=== PATIENT | female | born 1985 | race Caucasian/White ===

== ENCOUNTER 2016-05-26 15:15 | Emergency (ER) | payer OTHER ==
[~2016-05-26] VITALS: Ht 172.7 cm; Wt 59.0 kg
[2016-05-26 15:39] VITALS: BP 130/80
--- NOTE | 2016-05-26 17:36 | ED HEAD/FACIAL INJ COMPLAINT ---
History of Present Illness General Chief Complaint: Facial or Head Injury Stated Complaint: HEAD INJURY AT WORK Source: patient, old records Exam Limitations: no limitations Vital Signs & Intake/Output Vital Signs & Intake/Output Vital Signs Date Time Temp Pulse Resp B/P Pulse O2 O2 Flow FiO2 Ox Delivery Rate 05/26 1821 97.8 05/26 1539 97.8 79 18 130/80 98 Room Air ED Intake and Output 05/27 0000 05/26 1200 Intake Total Output Total Balance Patient 130 lb Weight Allergies Coded Allergies: Sulfa (Sulfonamide Antibiotics) (Intermediate, HIVES 05/26/16) azithromycin (From ZITHROMAX) (Intermediate, HIVES 05/26/16) Uncoded Allergies: PCN (Intermediate, HIVES 05/26/16) Reconcile Medications No Known Home Medications Triage Note: C/O PAIN IN TOP OF HEAD S/P WORK INJURY. STATES SHE WAS BENDING OVER AT WORK, A METAL SHELF FELL ON HER HEAD. SMALL LACEREATION TO TOP OF HEAD, ALSO C/O NAUSEA. Triage Nurses Notes Reviewed? yes Onset: Abrupt Severity: mild, moderate Severity Numbers: 5 Location: parietal Method of Injury: direct blow Loss of Consciousness: dazed Associated Symptoms: nausea : No Patient currently breastfeeds: No HPI: 31-year-old female presents emergency room complaining of a 7 out of 10 headache sudden in onset that came on after she was hit in the top of her head by a metal support while at work. The patient states that that she was dazed afterwards however did not lose consciousness. She's been complaining of nausea and headache since. She is not taken anything for her symptoms yet. She denies any other injury no neck or back pain no vision changes. The patient states that she has felt "spacey" since the injury occurred. Positive photophobia, no other modifying factors. Otherwise, no vomiting. Her last tetanus is unknown. (ALIZA SALDIVAR) Past History Travel History Traveled to [place] past 21 day No Medical History Any Pertinent Medical History? none Neurological: NONE Cardiovascular: NONE Gastrointestinal: NONE Hepatic: NONE Renal: NONE Musculoskeletal: NONE Psychiatric: NONE Endocrine: NONE Surgical History Surgical History: none Psychosocial History What is your primary language Maori Tobacco Use: Never used ETOH Use: occasional use Family History Hx Contributory? No (ALIZA SALDIVAR) Review of Systems Review of Systems Constitutional: Reports: see HPI. All Other Systems: Reviewed and Negative Comments Review of systems: See HPI, All other systems negative. Constitutional, no chills no fever, HEENT: no sore throat no congestion, no ear pain Cardiovascular: No chest pain , no palpitation Skin, no rashes, no change in skin Respiratory: No dyspnea no cough no sputum GI: No nausea no vomiting, no diarrhea, no bloating/constipation : No dysuria Muscle skeletal: No joint pain, no back pain, no neck pain, Neurologic: No numbness no confusion, no headache Psych: No stress Heme/endocrine: No bruising no bleeding Immunology: No lymphadenopathy (ALIZA SALDIVAR) Physical Exam Physical Exam General Appearance: well developed/nourished, alert, awake Cranial Nerves: normal hearing, normal speech, PERRL Comments: Well-developed well-nourished patient in no apparent distress. Head/Face: 2cm laceration to the mid parietal scalp, no surrounding ecchymosis, the rest of the scalp isatraumatic, nontender, no maxillary/frontal sinus tenderness, no facial swelling Eyes: PERRL, EOMI, no conjunctival injection. No nystagmus Ear:External auditory canal and Tympanic membranes clear, no erythema, no FB. no hemotypanum Nose: atraumatic.Normal inspection: No bleeding, no septal hematoma Throat: Moist mucous membranes.Pharynx normal. No pharyngeal erythema/exudate seen. No stridor/drooling or assymetry. No swelling or edema. Neck: Supple, no lymphadenopathy, FROM Back: FROM, Nontender Cardiovascular: Regular rate and rhythms no murmurs rubs or gallops, Respiratory: Chest nontender.There were no bony deformities, no asymmetry. No respiratory distress. Patient speaking in full complete sentences. Breath sounds clear to auscultation bilaterally: NO W/R/R Extremities: full range of motion Neuro: Alert and oriented x3 Skin: Warm & dry;No appreciable rash on exposed skin Psych: Mood affect normal, normal memory normal judgment. (ALIZA SALDIVAR) Progress Differential Diagnosis: facial fracture, ICH, skull fracture Plan of Care: Orders Procedure Date/time Status URINE 05/26 1634 Complete Laboratory Tests 05/26/16 1650: Urine Test NEGATIVE Wounds were thoroughly irrigated with normal saline and Betadine peroxide, CAT scan was ordered from triage. Patient medicated with Motrin, declining anything for nausea when offered at this time Discussed with patient CAT scan results, need for brain rest, supportive care Tylenol Motrin she is declining anything to go home with for nausea (ALIZA SALDIVAR) Diagnostic Imaging: Viewed by Me: CT Scan. Discussed w/RAD: CT Scan. Radiology Impression: PATIENT: ELAN GUERRA PRESENT AGE: 31 PATIENT ACCOUNT NO: [id number] : 87 LOCATION: [facility] ORDERING PHYSICIAN: ALIZA TELLEZ SERVICE DATE: 05/26/16 EXAM TYPE: CAT - CT HEAD WO IV CONTRAST EXAMINATION: CT HEAD WITHOUT CONTRAST CLINICAL INFORMATION: Headache. Dizziness. Loss of consciousness. COMPARISON: None TECHNIQUE: Contiguous axial imaging was performed from the skull base to vertex without intravenous administration of contrast. Coronal reformatted images performed at CT scanner DLP: 672.25 mGy-cm FINDINGS: There is no evidence of acute intracranial hemorrhage or territorial infarction. No abnormal mass effect or midline shift is seen. Waite to white matter differentiation is well preserved. No extra-axial fluid collections are identified. The ventricles are normal in size. There is no abnormal attenuation within the brain parenchyma. The osseous structures and soft tissues are normal. The mastoid air cells and visualized portions of the paranasal sinuses are well aerated. IMPRESSION: No acute intracranial pathology. DICTATED BY: JESSE CORONA MD DATE/TIME DICTATED:1830 CLERK STENOGRAPHER:MIHAI DATE/TIME TRANSCRIBED:05/26/161830 CONFIDENTIAL, DO NOT COPY WITHOUT APPROPRIATE AUTHORIZATION. <Electronically signed in Other Vendor System> SIGNED BY: JESSE CORONA MD 05/26/161836 (ALIZA SALDIVAR) Departure Departure Time of Disposition: 1857 Disposition: HOME OR SELF CARE Condition: Stable Clinical Impression Primary Impression: Concussion Secondary Impressions: Minor head injury, Scalp laceration Referrals: CR GREENE M.D. (PCP/Family) Additional Instructions: brain rest- limit tv, cell phone computer usage. tylenol or motrin as needed for pain. Return in 5 days for staple removal, return anytime sooner if any concerns Departure Forms: Customer Survey General Discharge Information Prescriptions: Current Visit Scripts No Known Home Medications (ALIZA SALDIVAR) PA/STOCK REPAIRER Co-Sign Statement Statement: ED Attending supervision documentation- [] I saw and evaluated the patient. I have also reviewed all the pertinent lab results and diagnostic results. I agree with the findings and the plan of care as documented in the PA's/STOCK REPAIRER's documentation. [X] I have reviewed the ED Record and agree with the PA's/STOCK REPAIRER's documentation. [] Additions or exceptions (if any) to the PAs/STOCK REPAIRER's note and plan are summarized below: [] (ANA ANDERSON,EMERSON) Procedures Laceration/Wound Repair Laceration/Wound Repair: Wound Location: head Wound's Depth, Shape: linear, superficial Wound Length (cm): 2 Wound Explored: clean, no foreign body removed, irrigated extensively Irrigated w/ Saline (ccs): 200 Betadine Prep? Yes Anesthesia: 1% lidocaine Volume Anesthetic (ccs): 5 Suture Size/Type: bc Number of Sutures: 3 Layer Closure? No Sterile Dressing Applied: Yes Date of Last Tetanus: 05/26/16 Tetanus Status: up to date (ALIZA SALDIVAR)
--- NOTE | 2016-05-26 18:37 | CT SCAN REPORT ---
EXAMINATION: CT HEAD WITHOUT CONTRAST CLINICAL INFORMATION: Headache. Dizziness. Loss of consciousness. COMPARISON: None TECHNIQUE: Contiguous axial imaging was performed from the skull base to vertex without intravenous administration of contrast. Coronal reformatted images performed at CT scanner DLP: 672.25 mGy-cm FINDINGS: There is no evidence of acute intracranial hemorrhage or territorial infarction. No abnormal mass effect or midline shift is seen. Waite to white matter differentiation is well preserved. No extra-axial fluid collections are identified. The ventricles are normal in size. There is no abnormal attenuation within the brain parenchyma. The osseous structures and soft tissues are normal. The mastoid air cells and visualized portions of the paranasal sinuses are well aerated. IMPRESSION: No acute intracranial pathology.
== END 2016-05-26 19:35 ==
LOC: ERH 15:15
DX: S01.01XA Laceration without foreign body of scalp, initial encounter (principal); S09.90XA Unspecified injury of head, initial encounter; S06.0X9A Concussion with loss of consciousness of unspecified duration, initial encounter; W22.8XXA Striking against or struck by other objects, initial encounter
CPT/HCPCS: 81025; 90471; 90714

== ENCOUNTER 2016-05-31 12:30 | Emergency (ER) | payer OTHER ==
[~2016-05-31] VITALS: Ht 165.1 cm; Wt 59.0 kg
[2016-05-31 12:36] VITALS: BP 118/73
--- NOTE | 2016-05-31 12:39 | ED ANIMAL BITE/WOUND CHECK ---
History of Present Illness General Chief Complaint: Suture Removal/Wound Recheck Stated Complaint: STAPLE REMOVAL Source: patient, family, old records Exam Limitations: no limitations Vital Signs & Intake/Output Vital Signs & Intake/Output Vital Signs Date Time Temp Pulse Resp B/P Pulse O2 O2 Flow FiO2 Ox Delivery Rate 05/31 1236 98.2 84 18 118/73 100 Room Air Allergies Coded Allergies: Sulfa (Sulfonamide Antibiotics) (Intermediate, HIVES 05/26/16) azithromycin (From ZITHROMAX) (Intermediate, HIVES 05/26/16) Uncoded Allergies: PCN (Intermediate, HIVES 05/26/16) Reconcile Medications No Known Home Medications Triage Nurses Notes Reviewed? yes : No Patient currently breastfeeds: No HPI: Patient presents for staple removal. Patient has no complaints. There is no headache or blurry vision. There is no nausea or vomiting. Past History Travel History Traveled to [place] past 21 day No Medical History Any Pertinent Medical History? none Neurological: NONE Cardiovascular: NONE Gastrointestinal: NONE Hepatic: NONE Renal: NONE Musculoskeletal: NONE Psychiatric: NONE Endocrine: NONE Tetanus Vaccine: 05/26/16 Surgical History Surgical History: none Psychosocial History What is your primary language Swedish Tobacco Use: Never used ETOH Use: occasional use Illicit Drug Use: denies illicit drug use Family History Hx Contributory? No Review of Systems Review of Systems Constitutional: Reports: no symptoms. Neurological/Psychological: Reports: no symptoms. Immunologic/Allergic: Reports: no symptoms. Physical Exam Physical Exam General Appearance: well developed/nourished, alert, awake Head: JOSEPH READY FOR REMOVAL Eyes: Bilateral: PERRL, EOMI. Neck: normal inspection, supple, no midline tenderness Neurologic/Psych: no motor/sensory deficits, awake, alert, oriented x 3, normal gait, normal mood/affect Progress Differential Diagnosis: STAPLE REMOVAL Plan of Care: RETMOVE JOSEPH Comments: 3 JOSEPH REMOVED WITHOUT DIFFICULTY Departure Departure Disposition: HOME OR SELF CARE Condition: Stable Clinical Impression Primary Impression: Removal of staple Referrals: CR GREENE M.D. (PCP/Family) Additional Instructions: RETURN NEEDED Departure Forms: Customer Survey General Discharge Information Prescriptions: Current Visit Scripts No Known Home Medications
== END 2016-05-31 12:40 ==
LOC: ERH 12:30
DX: Z48.02 Encounter for removal of sutures (principal)
CPT/HCPCS: 99281